=== PATIENT | female | born 1955 | race African-American/Black ===

== ENCOUNTER → 2020-10-10 10:29 | Outpatient (CLI) | payer MEDICARE, SELFPAY ==
--- NOTE | ~2020-10-10 | DEXA_ITS ---
Bone Density Report Name: Abdelrahman Salazar Age: 65 Sex: Female Ethnicity: Black Date of : 1955 Indication: postmenopausal; screening for osteoporosis; cancer; hysterectomy; Referring Provider: JET COOPER Study: Bone densitometry was performed. Exam Date: October 10, 2020 Accession number: [id number] Bone Density: Region BMD T-score Z-score Classification AP Spine (L1-L4) 1.034 -0.1 1.0 Normal Femoral Neck (Left) 0.837 -0.1 0.5 Normal Total Hip (Left) 1.069 1.0 1.3 Normal Femoral Neck (Right) 0.843 -0.1 0.6 Normal Total Hip (Right) 1.083 1.2 1.3 Normal Total Hip Mean 1.076 1.1 1.3 Normal World Health Organization criteria for BMD impression classify patients as: Normal (T-score at or above -1.0), Osteopenia (T-score between -1.0 and -2.5), or Osteoporosis (T-score at or below -2.5). 10-year Fracture Risk: FRAX not reported because: All T-scores for Spine Total, Hip Total, Femoral Neck at or above -1.0 Previous Exams: Region Exam Age BMD T-score BMD Change BMD Change Date g/cm2 vs Baseline vs Previous AP Spine(L1-L4) 10/10/2020 65 1.034 -0.1 0.157* 0.075* 05/29/2015 59 0.960 -0.8 0.082* 0.082* 06/19/2012 56 0.877 -1.5 Total Hip(Left) 10/10/2020 65 1.069 1.0 0.047* 0.017 05/29/2015 59 1.051 0.9 0.030* 0.030* 06/19/2012 56 1.022 0.7 Total Hip(Right) 10/10/2020 65 1.083 1.2 0.049* 0.008 05/29/2015 59 1.075 1.1 0.041* 0.041* 06/19/2012 56 1.034 0.8 *Denotes significance at 95% confidence level, LSC for AP Spine = 0.022 g/cm2, LSC for Total Hip = 0.027 g/cm2 Clinical Information Provided by Patient: Has the following medical conditions: Hysterectomy, Colon Cancer 1990 Patient maximum height was 64 Menopause Age: 34 No regular weight bearing exercise Does not regularly consume dairy products Drinks caffeinated beverages Onset of menses at age 14 Number of children 1 Impression: The patient has normal bone mass. No significant bone loss was observed. Discussion: BONE DENSITY IS ABOVE THE MINIMUM DESIRABLE LEVEL AT ALL SKELETAL SITES TESTED. This patient?s bone mineral density is above the minimum desirable level (T-score -1.0 or better) at all sites measured. The patient should follow a healthful lifestyle (good nutrition with adequate calcium and vitamin D, and appropriate
--- NOTE | ~2020-10-10 | MM_ITS ---
EXAMINATION: MM screening mimi BI w pete HISTORY: Screening TECHNIQUE: Craniocaudal and mediolateral oblique 3-D tomosynthesis images were obtained and synthetic 2-D images were generated. CAD analysis was submitted and interpreted. COMPARISON: Comparison to multiple prior studies sequentially, with oldest reviewed study dated 07/01. BREAST PARENCHYMAL COMPOSITION: The breasts are heterogeneously dense, which may obscure small masses . FINDINGS: There is no evidence of suspicious mass, calcification, or architectural distortion to sugg est malignancy in either breast. There has been no suspicious interval change. IMPRESSION: 1. No mammographic evidence of malignancy. 2. Recommend routine screening mammography in one year. BI-RADS Category 1: Negative Reviewed, dictated and finalized at location A. ECTION SYSTEMS CONSULTANT
== END ==
PROVIDERS: PCP Internal Medicine; Visit Provider Obstetrics & Gynecology
DX: Z12.31 Encounter for screening mammogram for malignant neoplasm of breast (principal); Z78.0 Asymptomatic menopausal state
CPT/HCPCS: 77063; 77067; 77080

== ENCOUNTER → 2021-01-21 00:32 | Outpatient (CLI) | payer MEDICARE, SELFPAY ==
[2021-01-21 18:03] LABS: SARS-CoV-2 RNA PCR Negative
== END ==
PROVIDERS: PCP Internal Medicine; Visit Provider Internal Medicine Gastroenterology
DX: Z01.812 Encounter for preprocedural laboratory examination (principal); Z20.822 Contact with and (suspected) exposure to COVID-19
CPT/HCPCS: C9803; U0003; U0005

== ENCOUNTER 2021-01-24 00:16 | Day surgery (SDC) | payer MEDICARE, SELFPAY ==
--- NOTE | 2021-01-11 14:22 | PC.NURSE ---
CONFIRMED NO HEALTH OR MEDICATION CHANGES SINCE INTERVIEW ON 12/25/2020, PT DENIES ANY CHANGES. UPDATED TIMES AND DATES WITH PT WITH PT VERBALIZING UNDERSTANDING.
[2021-01-11 14:25] VITALS: BMI 46.1
[2021-01-24 08:45] VITALS: BP 132/75; PULSE 93; RESP 16; TEMP 36; O2SAT 99
[2021-01-24] MEDS: LACTATED RINGERS 1,000 ML 150 ML IV CONT (08:58)
--- NOTE | 2021-01-24 09:30 | WPDGICN ---
GI Consult Note Consult date/time: 01/24/21 09:30 HPI: Reason for visit is colonoscopy. This very pleasant lady seen in consultation request of the primary physician. Impression: Screening and surveillance colonoscopy. The patient has a history colorectal cancer status post radiation therapy and surgery. CHF. COPD. HLD. HTN. MICAH. Obesity. Recommendation: Colonoscopy. History: This very pleasant lady is here for screening and surveillance colonoscopy. She has history of colorectal cancer. Her GI review systems negative. Physical examination: General: very pleasant patient in no acute distress. HEENT: Head was normocephalic sclerae is clear mouth without masses neck was supple. Heart: Rate rhythm regular without S3 or S4. Lungs: Decreased breath sounds bilaterally. Abdomen: Soft with no guarding or rigidity. Bowel sounds were active. Neurologic: Cranial nerves 2 through 12 intact. No focal defects. No clonus. Musculoskeletal system: Revealed no joint tenderness or swelling no muscle atrophy. Extremities: Reveal no significant edema. Skin: Warm and dry with normal turgor. Mental status: intact. Patient is alert and oriented. Review of Systems Review of Systems: All systems reviewed & are unremarkable except as noted in HPI and below PMFSH Past Medical History Medical History (Updated 01/24/21 @ 09:29 by Manuel Rodriguez DO) CHF (congestive heart failure) COPD mixed type Defibrination syndrome History of colon cancer Hypercholesterolemia Hypertension Obesity Osteoporosis Surgical History Surgical History (Updated 07/19/20 @ 08:02 by Taty Evans CMA) History of colon surgery Family History Family History (Updated 07/19/20 @ 08:02 by Taty Evans CMA) Sibling Diabetes mellitus Mother Diabetes mellitus Social History Social History Smoking packs per day: 1 Smoking cigarettes per day: 20.0 Years smoked: 40 Smoking pack-years: 40.00 Smoking status: Former smoker Tobacco type: cigarettes Smoking end date: 11/16/15 Alcohol intake: unknown Substance use: never Substance use type: does not use Living arrangements: alone Spiritual care concerns: No Meds Home Medications and Allergies Home Medications Medication Instructions Recorded Confirmed Type albuterol sulfate 90 mcg/actuation 2 puff INHALATION Q4-6H PRN gm 07/19/20 12/25/20 History aerosol inhaler aspirin 81 mg tablet,delayed 81 mg PO DAILY 07/19/20 01/24/21 History release carvedilol 6.25 mg tablet 6.25 mg PO Q12H 07/19/20 01/24/21 History furosemide 40 mg tablet 40 mg PO QAM 07/19/20 01/24/21 History sacubitril 24 mg-valsartan 26 mg 2 tablet PO BID tablet 07/19/20 01/24/21 History tablet simvastatin 20 mg tablet 20 mg PO DAILY 07/19/20 01/24/21 History spironolactone 25 mg tablet 25 mg PO DAILY 07/19/20 01/24/21 History tiotropium 2.5 mcg-olodaterol 2.5 2 puff INHALATION DAILY 07/19/20 01/24/21 History mcg/actuation mist for inhalation Allergies Allergy/AdvReac Type Severity Reaction Status Date / Time No Known Allergies Allergy Unknown Verified 01/24/21 08:42 Vital Signs Vital Signs - 24 hr 01/24/21 08:45 Temperature 36.0 C L Pulse Rate 93 Respiratory Rate 16 Blood Pressure 132/75 Pulse Oximetry 99
--- NOTE | 2021-01-24 09:32 | WPDANESEPPF ---
Anes - Initial Pre Proc Eval Procedure: Operation Date: 01/24/21 10:00 Proposed Procedures p Screening Colonoscopy - Manuel Rodriguez DO Date/Time: 01/24/21 09:32 Surgeon: Manuel Rodriguez DO Pre Op Diagnosis: neoplasm screening Patient Data Age: 65 Gender: F Height: 5 ft 4 in Weight: 121 kg Last Vital Signs Temp 96.8 F L 01/24/21 08:45 Pulse 93 01/24/21 08:45 Resp 16 01/24/21 08:45 BP 132/75 01/24/21 08:45 Pulse Ox 99 01/24/21 08:45 Allergies Allergy/AdvReac Type Severity Reaction Status Date / Time No Known Allergies Allergy Unknown Verified 01/24/21 08:42 Home Medications Medication Instructions Recorded Confirmed Type albuterol sulfate 90 mcg/actuation 2 puff INHALATION Q4-6H PRN gm 07/19/20 12/25/20 History aerosol inhaler aspirin 81 mg tablet,delayed 81 mg PO DAILY 07/19/20 01/24/21 History release carvedilol 6.25 mg tablet 6.25 mg PO Q12H 07/19/20 01/24/21 History furosemide 40 mg tablet 40 mg PO QAM 07/19/20 01/24/21 History sacubitril 24 mg-valsartan 26 mg 2 tablet PO BID tablet 07/19/20 01/24/21 History tablet simvastatin 20 mg tablet 20 mg PO DAILY 07/19/20 01/24/21 History spironolactone 25 mg tablet 25 mg PO DAILY 07/19/20 01/24/21 History tiotropium 2.5 mcg-olodaterol 2.5 2 puff INHALATION DAILY 07/19/20 01/24/21 History mcg/actuation mist for inhalation Patient hx anesthesia problems: none Family hx anesthesia problems: none PMFSH Past Medical History Medical History (Updated 01/24/21 @ 09:29 by Manuel Rodriguez DO) CHF (congestive heart failure) COPD mixed type Defibrination syndrome History of colon cancer Hypercholesterolemia Hypertension Obesity Osteoporosis Surgical History Surgical History (Updated 07/19/20 @ 08:02 by Taty Evans CMA) History of colon surgery Family History Family History (Updated 07/19/20 @ 08:02 by Taty Evans CMA) Sibling Diabetes mellitus Mother Diabetes mellitus Social History Social History Smoking packs per day: 1 Smoking cigarettes per day: 20.0 Years smoked: 40 Smoking pack-years: 40.00 Smoking status: Former smoker Tobacco type: cigarettes Smoking end date: 11/16/15 Alcohol intake: unknown Substance use: never Substance use type: does not use Living arrangements: alone Spiritual care concerns: No Anes - Eval Final PreProcedure Day of Procedure 01/24/21 09:32 Patient weight: morbidly obese Heart: regular rate and rhythm Lungs: clear to auscultation Airway: Mallampati scale class III Neurological: alert and oriented Last oral intake: >/= 8 hours ASA classification: IV Emergent: no Anesthetic plan: proceed Anesthesia type and monitoring: general GIVS and standard monitoring Informed Consent: The patient's anesthetic plan and its attendant risks and benefits were discussed with the patient/family/POA. Questions were solicited and answers provided to the satisfaction of the patient/family/POA.
[2021-01-24 10:22] VITALS: BP 148/60; PULSE 78; RESP 23; O2SAT 99
[2021-01-24 10:32] VITALS: BP 139/80; PULSE 69; RESP 24; O2SAT 100
[2021-01-24 10:42] VITALS: BP 125/97; PULSE 72; RESP 22; O2SAT 100
== END 2021-01-24 10:47 | disposition home or self-care (01) ==
PROVIDERS: PCP Internal Medicine; Referring Provider Obstetrics & Gynecology; Visit Provider Internal Medicine Gastroenterology
PROC: 0DJD8ZZ Inspection of Lower Intestinal Tract, Via Natural or Artificial Opening Endoscopic (ICD-10-PCS; CPT 45378; principal; 2021-01-24 10:00)
DX: Z12.11 Encounter for screening for malignant neoplasm of colon (principal); D12.3 Benign neoplasm of transverse colon; K64.8 Other hemorrhoids; Z85.038 Personal history of other malignant neoplasm of large intestine; Z92.3 Personal history of irradiation; Z90.49 Acquired absence of other specified parts of digestive tract; Z98.0 Intestinal bypass and anastomosis status; I11.0 Hypertensive heart disease with heart failure; I50.9 Heart failure, unspecified; E78.5 Hyperlipidemia, unspecified; J44.9 Chronic obstructive pulmonary disease, unspecified; G47.33 Obstructive sleep apnea (adult) (pediatric); D65 Disseminated intravascular coagulation [defibrination syndrome]; M81.0 Age-related osteoporosis without current pathological fracture; E66.01 Morbid (severe) obesity due to excess calories; Z68.42 Body mass index [BMI] 45.0-49.9, adult; Z87.891 Personal history of nicotine dependence; Z79.82 Long term (current) use of aspirin; Z79.51 Long term (current) use of inhaled steroids
CPT/HCPCS: 45380; 88305; C9803; J2704; J7120; U0003; U0005

== ENCOUNTER → 2021-11-21 14:15 | Outpatient (CLI) | payer MEDICARE, SELFPAY ==
--- NOTE | ~2021-11-21 | MM_ITS ---
EXAMINATION: MM screening mimi BI w pete HISTORY: Screening mammogram, family history of breast cancer in her sister. TECHNIQUE: Craniocaudal and mediolateral oblique 3-D tomosynthesis images were obtained and synthetic 2-D images were generated. CAD analysis was submitted and interpreted. COMPARISON: 10/10/2020, 08/23/2018, 08/17/2017 BREAST PARENCHYMAL COMPOSITION: There are scattered areas of fibroglandular density. FINDINGS: There is no evidence of suspicious mass, calcification, or architectural distortion to sugg est malignancy in either breast. There has been no suspicious interval change. IMPRESSION: 1. No mammographic evidence of malignancy. 2. Recommend routine screening mammography in one year. BI-RADS Category 1: Negative Reviewed, dictated and finalized at location A. RTISING MANAGER
== END ==
PROVIDERS: Visit Provider Obstetrics & Gynecology
DX: Z12.31 Encounter for screening mammogram for malignant neoplasm of breast (principal)
CPT/HCPCS: 77063; 77067

== ENCOUNTER 2022-07-15 14:46 | Outpatient (CLI) | payer OTHER, SELFPAY ==
[2022-07-15 18:54] LABS: Basophils Percent Auto 0.7 % (0.2-1.2); Eosinophils Absolute Auto 0.4 K/mm3 (0-0.3); Eosinophils Percent Auto 6.4 % (0-4.4); Hematocrit 40.3 % (37.0-47.0); Hemoglobin 12.9 g/dL (12.0-15.0); Immature Granulocyte Absolute 0.03 K/mm3 (0.00-0.031); Immature Granulocyte Percent A 0.5 % (0-0.5); Lymphocytes Absolute Auto 2.01 K/mm3 (0.9-3.2); Lymphocytes Percent Auto 34.1 % (18.3-44.2); Mean Corpuscular Hemoglobin 33.1 pg (26-34); Mean Corpuscular Volume 103.3 fl (80-100); Mean Platelet Volume 12.7 fl (7.4-10.4); Monocytes Absolute Auto 0.7 K/mm3 (0.1-0.6); Neutrophils Absolute Auto 2.8 K/mm3 (1.3-6.7); Neutrophils Percent Auto 47.3 % (45.5-73.1); Platelet Count Result 179 k/mm3 (150-375); Red Cell Distribution Width 13.2 % (11.5-14.5); White Blood Count 5.9 K/mm3 (4.5-10.0)
[2022-07-15 19:14] LABS: Alanine Aminotransferase 12 U/L (6-35); Albumin Level 4.2 g/dL (3.5-5.1); Alkaline Phosphatase 88 U/L (38-126); Anion Gap 3 mmol/L (8-16); Aspartate Amino Transferase 25 U/L (14-36); Bilirubin,Total 0.5 mg/dL (0.2-1.3); Blood Urea Nitrogen 12 mg/dL (7-17); Calcium 8.2 mg/dL (8.4-10.2); Carbon Dioxide 31 mmol/L (22-30); Chloride 99 mmol/L (98-107); Estimated Glomerular Filt Rate 60; Glucose 86 mg/dL (65-110); Potassium 4.1 mmol/L (3.4-5.0); Sodium 133 mmol/L (137-145)
== END 2022-07-15 14:47 | disposition home or self-care (01) ==
PROVIDERS: PCP Internal Medicine; Visit Provider Clinical Nurse Specialist
DX: I50.9 Heart failure, unspecified (principal)
CPT/HCPCS: 36415; 80053; 85025

== ENCOUNTER 2022-07-28 13:33 | Emergency (ER) | payer OTHER, SELFPAY ==
[2022-07-28 13:58] VITALS: BP 144/79; PULSE 93; RESP 14; TEMP 36.6; O2SAT 100
--- NOTE | 2022-07-28 15:38 | ED.FEMALEGU ---
HPI - Female Genitourinary General Chief complaint: Urogenital-Female Stated complaint: UTI History of Present Illness HPI Narrative: 66-year-old female presents the emergency room for multiple complaints. Patient has been complaining of dysuria for 2 days. Also complaining of a draining wound to the top of her gluteal cleft. Also complains of a pruritic rash in her perineal area. Related Data Home Medications Medication Instructions Recorded Confirmed albuterol sulfate 90 mcg/actuation 2 puff inhalation Q4-6H PRN 07/19/20 07/16/22 aerosol inhaler (ProAir HFA) Shortness Of Breath aspirin 81 mg tablet,delayed 81 mg PO DAILY 07/19/20 07/16/22 release (Adult Aspirin Regimen) carvedilol 6.25 mg tablet 6.25 mg PO Q12H 07/19/20 07/16/22 furosemide 40 mg tablet 40 mg PO QAM 07/19/20 07/16/22 sacubitril 24 mg-valsartan 26 mg 2 tablet PO BID 07/19/20 07/16/22 tablet (Entresto) simvastatin 20 mg tablet 20 mg PO DAILY 07/19/20 07/16/22 spironolactone 25 mg tablet 25 mg PO DAILY 07/19/20 07/16/22 tiotropium 2.5 mcg-olodaterol 2.5 2 puff inhalation DAILY 07/19/20 07/16/22 mcg/actuation mist for inhalation (Stiolto Respimat) nintedanib 150 mg capsule (Ofev) 150 mg PO Q12H 07/15/22 07/16/22 Allergies Allergy/AdvReac Type Severity Reaction Status Date / Time No Known Allergies Allergy Unknown Verified 07/28/22 14:45 Review of Systems Review of Systems: CONSTITUTIONAL: Denies fever, chills, or sweats. EYES: Denies visual changes, redness, or discharge. ENT: Denies rhinorrhea, congestion, sore throat, or otalgia. CARDIOVASCULAR: Denies chest pain, palpitations, or edema. RESPIRATORY: Denies cough or dyspnea. GASTROINTESTINAL: Denies abdominal pain, nausea, vomiting, or diarrhea. GENITOURINARY: Reports dysuria SKIN: Reports rash perineal area MUSCULOSKELETAL: Denies back pain, joint pain, or myalgia. NEUROLOGIC: Denies headache, numbness, dizziness, or weakness. PSYCHIATRIC: Denies anxiety or depression. [facility] Past Medical History Medical History CHF (congestive heart failure) COPD mixed type Defibrination syndrome History of colon cancer Hypercholesterolemia Hypertension Obesity Osteoporosis Surgical History Surgical History History of colon surgery Family History Family History Sibling Diabetes mellitus Mother Diabetes mellitus Social History Social History Smoking packs per day: 1 Smoking cigarettes per day: 20.0 Years smoked: 40 Smoking pack-years: 40.00 Smoking status: Former smoker Tobacco type: cigarettes Smoking end date: 11/16/15 Alcohol intake: unknown Substance use: never Substance use type: does not use Spiritual care concerns: No Exam Narrative: GENERAL: Well-appearing, well-nourished, no physical limitations, and in no acute distress. HEAD: Normocephalic, atraumatic. EYES: Conjunctivae normal, PERRLA and EOMI. CHEST: Clear to auscultation. No respiratory distress. No wheezes rales or rhonchi. No tenderness. HEART: Regular rate and rhythm. No murmur heard. Normal peripheral pulses. ABDOMEN: Soft, nontender, nondistended, normal active bowel sounds. : Normal external female exam. EXTREMITIES: Normal range of motion. No edema. No clubbing or cyanosis SKIN: Erythematous plaque with raised borders to the gluteal fold, draining abscess to the upper left gluteal cleft NEURO: No focal deficits. Alert and oriented x3. MAEW. CN's II-XI intact bilaterally, normal gait PSYCH: Cooperative. Normal mood and affect. Course Vital Signs Vital signs: Vital Signs Temperature 36.6 C 07/28/22 13:58 Pulse Rate 93 07/28/22 13:58 Respiratory Rate 14 07/28/22 13:58 Blood Pressure 144/79 H 07/28/22 13:58 Pulse Oximetry 100 07/28/22 13:58 Ox
[2022-07-28 16:11] LABS: Alanine Aminotransferase 13 U/L (6-35); Albumin Level 4.2 g/dL (3.5-5.1); Alkaline Phosphatase 76 U/L (38-126); Anion Gap 10 mmol/L (8-16); Aspartate Amino Transferase 21 U/L (14-36); Bilirubin,Total 0.8 mg/dL (0.2-1.3); Blood Urea Nitrogen 14 mg/dL (7-17); Calcium 8.8 mg/dL (8.4-10.2); Carbon Dioxide 31 mmol/L (22-30); Chloride 100 mmol/L (98-107); Estimated CRCL calculation 67 ml/min; Estimated Glomerular Filt Rate > 60; Glucose 100 mg/dL (65-110); Sodium 141 mmol/L (137-145)
[2022-07-28 16:13] LABS: Appearance Urine Clear (Clear); Bilirubin Urine Negative (Negative); Color Urine Yellow (Yellow); Glucose Urine UA Negative (Negative); Ketones Urine Negative (Negative); Leukocyte Esterase Ur 1+ LEU/UL (Negative); Nitrate Urine Negative (Negative); Protein Urine Negative (Negative); Urobilinogen Urine 0.2 mg/dL (<2.0)
[2022-07-28 16:20] LABS: Add Urine Microscopic? YES; Bacteria Urine 1+ /hpf; Blood Urine Trace-Intact (Negative); RBC Urine 0-2 /hpf (0-2); Squamous Epithelial Cell Urine Rare /hpf (Few); WBC Urine >75 /hpf
[2022-07-28 16:46] VITALS: BP 142/80; PULSE 88; RESP 16; TEMP 36.8; O2SAT 97
== END 2022-07-28 16:49 | disposition home or self-care (01) ==
PROVIDERS: Emergency Medicine; Emergency Provider Nurse Practitioner Family; PCP Internal Medicine
DX: N39.0 Urinary tract infection, site not specified (principal); B35.4 Tinea corporis; L02.31 Cutaneous abscess of buttock; Z87.891 Personal history of nicotine dependence; I11.0 Hypertensive heart disease with heart failure; I50.9 Heart failure, unspecified; J44.9 Chronic obstructive pulmonary disease, unspecified; E78.5 Hyperlipidemia, unspecified
CPT/HCPCS: 36415; 51701; 80053; 81001; 87077; 87086; 87088; 99283

== ENCOUNTER 2022-09-04 07:18 | Outpatient (RCR) | payer OTHER, SELFPAY ==
[2022-08-07 09:30] VITALS: BMI 44.5
== END 2022-10-27 08:38 | disposition home or self-care (01) ==
LOC: ANHWOC 07:18
PROVIDERS: PCP Internal Medicine; Visit Provider Clinical Nurse Specialist
DX: L02.91 Cutaneous abscess, unspecified (principal)
CPT/HCPCS: 99211; 99212; G0463

== ENCOUNTER 2024-04-27 11:45 | Outpatient (CLI) | payer OTHER, SELFPAY ==
[2024-04-27 19:11] LABS: Basophils Percent Auto 0.4 % (0.2-1.2); Eosinophils Absolute Auto 0.1 K/mm3 (0-0.3); Eosinophils Percent Auto 0.8 % (0-4.4); Hematocrit 33.8 % (37.0-47.0); Hemoglobin 11.2 g/dL (12.0-15.0); Immature Granulocyte Absolute 0.09 K/mm3 (0.00-0.031); Immature Granulocyte Percent A 1.1 % (0-0.5); Lymphocytes Absolute Auto 1.43 K/mm3 (0.9-3.2); Lymphocytes Percent Auto 16.9 % (18.3-44.2); Mean Corpuscular HGB Conc 33.1 g/dl (32-36); Mean Corpuscular Hemoglobin 34.7 pg (26-34); Mean Corpuscular Volume 104.6 fl (80-100); Mean Platelet Volume 11.1 fl (7.4-10.4); Monocytes Absolute Auto 0.9 K/mm3 (0.1-0.6); Monocytes Percent Auto 10.3 % (2.6-8.5); Neutrophils Percent Auto 70.5 % (45.5-73.1); Platelet Count Result 265 k/mm3 (150-375); Red Blood Count 3.23 M/mm3 (4.2-5.4); Red Cell Distribution Width 13.3 % (11.5-14.5); White Blood Count 8.4 K/mm3 (4.5-10.0)
[2024-04-27 19:23] LABS: Appearance Urine Turbid (Clear); Bacteria Urine 4+ /hpf; Bilirubin Urine Negative (Negative); Blood Urine 3+ (Negative); Color Urine Yellow (Yellow); Glucose Urine UA Negative (Negative); Ketones Urine Negative (Negative); Leukocyte Esterase Ur 3+ LEU/UL (Negative); Need Manual Microscopic Reviewed; Nitrate Urine Positive (Negative); Non Pathogenic Casts >20; Protein Urine 2+ mg/dL (Negative); RBC Urine 0-2 /hpf (0-2); Specific Grav Ur 1.012 (1.001-1.035); Squamous Epithelial Cell Urine Few /hpf (Few); WBC Urine >100 /hpf (0-3)
[2024-04-27 19:31] LABS: Add Urine Microscopic? YES
[2024-04-27 19:41] LABS: Vitamin D 25 Hydroxy 15.2 ng/mL
[2024-04-27 19:43] LABS: Creatinine Urine 131.9 mg/dL
[2024-04-27 19:45] LABS: Alanine Aminotransferase 16 U/L (6-35); Albumin Level 4.1 g/dL (3.5-5.1); Alkaline Phosphatase 84 U/L (38-126); Anion Gap 8 mmol/L (4-12); Aspartate Amino Transferase 41 U/L (14-36); Bilirubin,Total 0.7 mg/dL (0.2-1.3); Blood Urea Nitrogen 23 mg/dL (7-17); Calcium 8.9 mg/dL (8.4-10.2); Carbon Dioxide 30 mmol/L (22-30); Chloride 98 mmol/L (98-107); Estimated Glomerular Filt Rate 49; Glucose 159 mg/dL (65-110); Potassium 3.2 mmol/L (3.4-5.0); Sodium 136 mmol/L (137-145)
[2024-04-27 20:08] LABS: Thyroid Stimulating Hormone 0.686 uIU/mL (0.465-4.680)
[2024-04-27 20:16] LABS: MALB Creatinine Ratio 174.9 mg/g (0-30); Microalbumin Urine Random 230.7 mg/L (0-16.7)
[2024-04-27 20:36] LABS: Hemoglobin A1C 5.8 % (<5.7)
== END 2024-04-27 11:46 | disposition home or self-care (01) ==
PROVIDERS: PCP Internal Medicine; Visit Provider Clinical Nurse Specialist
DX: Z09 Encounter for follow-up examination after completed treatment for conditions other than malignant neoplasm (principal); E78.00 Pure hypercholesterolemia, unspecified; I10 Essential (primary) hypertension; I50.9 Heart failure, unspecified; J44.9 Chronic obstructive pulmonary disease, unspecified; M25.559 Pain in unspecified hip; R35.0 Frequency of micturition; R68.2 Dry mouth, unspecified; R73.9 Hyperglycemia, unspecified; E55.9 Vitamin D deficiency, unspecified
CPT/HCPCS: 36415; 80053; 81001; 82043; 82306; 83036; 84443; 85025; 87077; 87086; 87088; 87186

== ENCOUNTER 2024-04-27 12:00 | Outpatient (CLI) | payer OTHER, SELFPAY ==
--- NOTE | ~2024-04-27 | XR_ITS ---
XR hip RT min 2V 04/27/2024 12:15 Indication: Right hip pain Procedure: 2 views right hand Comparison: No prior studies for comparison. Findings: Mild osteoarthritis of the right hip. There are degenerative changes symmetrically in the s acroiliac joints. There is diastases of the pubic symphysis. Sacral foramen are symmetric. Impression: 1: Mild osteoarthritis of the right hip. Reviewed, dictated and finalized at location B. Impression: 1: Mild osteoarthritis of the right hip.
== END 2024-04-27 12:01 ==
PROVIDERS: PCP Internal Medicine; Visit Provider Clinical Nurse Specialist
DX: M16.11 Unilateral primary osteoarthritis, right hip (principal)
CPT/HCPCS: 73502

== ENCOUNTER 2024-05-05 10:09 | Outpatient (CLI) | payer OTHER, SELFPAY ==
[2024-05-05 14:51] LABS: Basophils Percent Auto 0.5 % (0.2-1.2); Eosinophils Absolute Auto 0.1 K/mm3 (0-0.3); Eosinophils Percent Auto 1.8 % (0-4.4); Hematocrit 35.7 % (37.0-47.0); Hemoglobin 11.5 g/dL (12.0-15.0); Immature Granulocyte Absolute 0.08 K/mm3 (0.00-0.031); Immature Reticulocyte Fraction 18.7 % (3.0-15.9); Lymphocytes Absolute Auto 1.35 K/mm3 (0.9-3.2); Lymphocytes Percent Auto 17.1 % (18.3-44.2); Mean Corpuscular HGB Conc 32.2 g/dl (32-36); Mean Corpuscular Hemoglobin 34.2 pg (26-34); Mean Corpuscular Volume 106.3 fl (80-100); Monocytes Absolute Auto 0.8 K/mm3 (0.1-0.6); Neutrophils Absolute Auto 5.5 K/mm3 (1.3-6.7); Neutrophils Percent Auto 69.6 % (45.5-73.1); Platelet Count Result 259 k/mm3 (150-375); Red Blood Count 3.36 M/mm3 (4.2-5.4); Red Cell Distribution Width 13.4 % (11.5-14.5); Reticulocyte Hemoglobin Conten 37.2 pg (28.2-36.6); Reticulocyte Percent 2.12 % (0.7-4.3); Reticulocytes Absolute 0.07 10^6/uL (0.02-0.10); White Blood Count 7.9 K/mm3 (4.5-10.0)
[2024-05-05 15:23] LABS: Creatinine Urine 160.2 mg/dL
[2024-05-05 15:24] LABS: MALB Creatinine Ratio 54.7 mg/g (0-30); Microalbumin Urine Random 87.6 mg/L (0-16.7)
[2024-05-05 15:40] LABS: Iron 88 ug/dL (37-170)
[2024-05-05 15:53] LABS: Alanine Aminotransferase 14 U/L (6-35); Albumin Level 4.4 g/dL (3.5-5.1); Alkaline Phosphatase 91 U/L (38-126); Anion Gap 8 mmol/L (4-12); Aspartate Amino Transferase 23 U/L (14-36); Bilirubin,Total 0.8 mg/dL (0.2-1.3); Blood Urea Nitrogen 23 mg/dL (7-17); Calcium 8.9 mg/dL (8.4-10.2); Carbon Dioxide 32 mmol/L (22-30); Chloride 98 mmol/L (98-107); Estimated Glomerular Filt Rate 45; Glucose 120 mg/dL (65-110); Potassium 4.2 mmol/L (3.4-5.0); Sodium 138 mmol/L (137-145)
[2024-05-05 16:01] LABS: Percent Iron Saturation 38 % (20-50)
[2024-05-05 17:28] LABS: Macrocytosis 1+ (NORMAL); Platelet Estimate Adequate (Adequate)
[2024-05-05 17:29] LABS: Schistocytes None Seen
[2024-05-06 08:24] LABS: Protein, Total 7.2 g/dL (6.1-8.1)
[2024-05-06 14:43] LABS: ANA Cascade Screen POSITIVE (NEGATIVE); Chromatin (Nucleosomal) Ab <1.0 NEG AI (<1.0 NEG); Chromatin Antibody Charge YES; DNA (ds) Antibody Charge YES; RNP Antibody <1.0 NEG AI (<1.0 NEG); RNP Antibody Charge YES; Sm Antibody <1.0 NEG AI (<1.0 NEG); Sm Antibody Charge YES; Sm/RNP Antibody <1.0 NEG AI (<1.0 NEG); Sm/RNP Antibody Charge YES
[2024-05-06 16:38] LABS: Creatinine, Random Urine 156 mg/dL (20-275); Total Protein/Creatinine Ratio 353 mg/g creat (24-184)
[2024-05-09 12:34] LABS: Albumin 3.4 g/dL (3.8-4.8); Alpha 1 Globulin 0.4 g/dL (0.2-0.3); Alpha 2 Globulin 1.2 g/dL (0.5-0.9); Beta 1 Globulin 0.4 g/dL (0.4-0.6); Gamma Globulin 1.3 g/dL (0.8-1.7)
== END 2024-05-05 10:10 | disposition home or self-care (01) ==
PROVIDERS: PCP Internal Medicine; Visit Provider Clinical Nurse Specialist
DX: R79.89 Other specified abnormal findings of blood chemistry (principal); R74.8 Abnormal levels of other serum enzymes; J44.9 Chronic obstructive pulmonary disease, unspecified; D64.9 Anemia, unspecified
CPT/HCPCS: 36415; 80053; 82043; 82570; 82607; 82728; 83540; 83550; 84155; 84156; 84165; 84166; 85025; 85046; 86038; 86225; 86235; 86364

== ENCOUNTER 2024-05-24 13:52 | Outpatient (CLI) | payer OTHER, SELFPAY ==
[2024-05-24 19:37] LABS: Anion Gap 8 mmol/L (4-12); Blood Urea Nitrogen 16 mg/dL (7-17); Calcium 8.6 mg/dL (8.4-10.2); Carbon Dioxide 31 mmol/L (22-30); Chloride 102 mmol/L (98-107); Estimated Glomerular Filt Rate > 60; Glucose 123 mg/dL (65-110); Potassium 3.5 mmol/L (3.4-5.0); Sodium 141 mmol/L (137-145)
[2024-05-24 20:01] LABS: Creatinine Urine 85.4 mg/dL; Total Protein Urine Random 17 mg/dL
[2024-05-24 20:05] LABS: MALB Creatinine Ratio 47.1 mg/g (0-30); Microalbumin Urine Random 40.2 mg/L (0-16.7)
== END 2024-05-24 13:53 | disposition home or self-care (01) ==
LOC: ANHGOSHLAB 13:56
PROVIDERS: PCP Clinical Nurse Specialist; Visit Provider Clinical Nurse Specialist
DX: D64.9 Anemia, unspecified (principal); R79.89 Other specified abnormal findings of blood chemistry; M25.551 Pain in right hip; R80.9 Proteinuria, unspecified
CPT/HCPCS: 36415; 80048; 81050; 82043; 82728; 84156

== ENCOUNTER 2024-09-28 14:43 | Outpatient (NON) | payer OTHER, SELFPAY ==
[2024-09-28 20:24] LABS: Add Urine Microscopic? YES; Appearance Urine Cloudy (Clear); Bacteria Urine 4+ /hpf; Bilirubin Urine Negative (Negative); Blood Urine 3+ (Negative); Color Urine Yellow (Yellow); Glucose Urine UA Negative (Negative); Ketones Urine Negative (Negative); Leukocyte Esterase Ur 3+ LEU/UL (Negative); Nitrate Urine Negative (Negative); Non Pathogenic Casts 0-2; Protein Urine 1+ mg/dL (Negative); RBC Urine 0-2 /hpf (0-2); Specific Grav Ur 1.006 (1.001-1.035); Squamous Epithelial Cell Urine None Seen /hpf (Few); Urobilinogen Urine 0.2 mg/dL (<2.0); WBC Urine >100 /hpf (0-3); pH Urine 6.5 (5.0-9.0)
== END 2024-09-28 14:44 | disposition home or self-care (01) ==
LOC: ANHGOSHLAB 14:44
PROVIDERS: PCP Internal Medicine; Visit Provider Nurse Practitioner
DX: N39.0 Urinary tract infection, site not specified (principal); R31.9 Hematuria, unspecified; R39.9 Unspecified symptoms and signs involving the genitourinary system; R35.0 Frequency of micturition
CPT/HCPCS: 81001; 87086

== ENCOUNTER 2025-01-02 12:50 | Outpatient (CLI) | payer OTHER, SELFPAY ==
--- NOTE | ~2025-01-02 | MM_ITS ---
EXAMINATION: MM screening mimi BI w pete HISTORY: Screening TECHNIQUE: Craniocaudal and mediolateral oblique 3-D tomosynthesis images were obtained and synthetic 2-D images were generated. CAD analysis was submitted and interpreted. COMPARISON: Comparison to multiple prior studies sequentially, with oldest reviewed study dated 08/11. BREAST PARENCHYMAL COMPOSITION: Not dense: There are scattered areas of fibroglandular density. FINDINGS: There is no evidence of suspicious mass, calcification, or architectural distortion to sugg est malignancy in either breast. There has been no suspicious interval change. IMPRESSION: 1. No mammographic evidence of malignancy. 2. Recommend routine screening mammography in one year. BI-RADS Category 1: Negative Reviewed, dictated and finalized at location B. R APPRENTICE
--- OUTSIDE RECORDS SUMMARY | 2025-01-02 15:15 | XMS_ITS | Referral Summary ---
Author Organization [facility] Address [address] [place] [address] Care Team Providers Care Singing Teacher Name Role Phone Carmine Yost DO Primary Care Provider [phone] Cristin Medina MD Unavailable [phone] Encounters Date Type Department Care Team Description 11/09/2024 Orders Only [facility] Cardiology [address] [place] [address] Marcus Bey MD PhD from Last 3 Months Allergies No known active allergies Medications aspirin 81 mg tabletIndications: heart Take 1 tablet (81 mg total) by mouth early head start director before breakfast Active cyclobenzaprine (FLEXERIL) 10 mg tablet Take 1 tablet (10 mg total) by mouth 3 (three) times a day as needed for muscle spasms 0 07/21/20 19 Active albuterol HFA (PROAIR HFA) 90 mcg/actuation inhaler Inhale 2 puffs every 4 (four) hours as needed for wheezing or shortness of breath 8.5 g 5 09/02/20 19 03/ 030 Active Stiolto Respimat 2.5-2.5 mcg/actuation inhalerIndications :Bronchospasm Prevention with COPD Inhale 1 puff early head start director before breakfast 07/05/20 20 Active Ofev 150 mg capsuleIndications :progressive fibrosing interstitial lung disease Take 1 capsule (150 mg total) by mouth early head start director before breakfast 06/09/20 22 Active dapagliflozin propanediol (Farxiga) 10 mg tablet TAKE 1 TABLET BY MOUTH EVERY DAY 90 tablet 3 02/10/20 24 Active Additional Information Patient taking differently: 10 mg oral Daily (early AM), Indications: Heart Failure, Informant: Self, Reported on 02/15/2024 bismuth subsalicylate (PEPTO-BISMOL) suspension Take 30 mL by mouth every 6 (six) hours as needed for indigestion, heartburn or diarrhea Active cranberry-vitamin C-mannose 250-30-50 mg tablet,chewableInd ications:Recurrent UTI Take 1,000 mg by mouth 2 (two) times a day 60 tablet 3 05/30/20 24 Active estradioL (ESTRACE) 0.01 % (0.1 mg/gram) vaginal creamIndications:M ixed stress and urge urinary incontinence,Recur rent UTI,Urgency of urination,Urinary frequency,Dysuria, Genitourinary syndrome of menopause Apply one (1) gram in the vagina two to three (2-3) nights per week. 42.5 g 2 05/30/20 24 Active furosemide (LASIX) 40 mg tablet TAKE 1 TABLET BY MOUTH EVERY DAY 90 tablet 2 07/19/20 24 Active sacubitriL-valsart an (ENTRESTO) 24-26 mg tabletIndications: chronic heart failure Use as directed 14 tablet 07/26/20 24 Active dapagliflozin propanediol (FARXIGA) 10 mg tablet Use as directed 7 tablet 07/26/20 24 Active tamsulosin (FLOMAX) 0.4 mg extended release capsuleIndications :Incomplete bladder emptying,Bilateral hydronephrosis Take 1 capsule (0.4 mg total) by mouth daily 30 capsule 5 08/01/20 24 Active carvediloL (COREG) 6.25 mg tablet TAKE 1 TABLET BY MOUTH TWICE A DAY WITH FOOD 180 tablet 1 11/25/19 25 Active sacubitriL-valsart an (Entresto) 24-26 mg tablet TAKE 1 TABLET BY MOUTH TWICE A DAY 60 tablet 5 11/28/19 25 Active spironolactone (ALDACTONE) 25 mg tablet TAKE 1 TABLET BY MOUTH EVERY DAY 30 tablet 5 11/28/19 25 Active simvastatin (ZOCOR) 20 mg tablet TAKE 1 TABLET BY MOUTH EVERY DAY AT NIGHT 30 tablet 5 11/28/19 25 Active Active Problems Problem Noted Date Diagnosed Date NICM (nonischemic cardiomyopathy) ([facility]) 02/16 VF (ventricular fibrillation) ([facility]) 02/05/20 21 Encounter for adjustment of biventricular implantable cardioverter-defibrillator (ICD) 01/30/2020 Assessment & Plan (02/05/2023 9:36 AM CDT): Cardiac arrest s/p secondary prevention [facility] [place] HAND LENS POLISHER-D (09/15/2017) HAND LENS POLISHER-D is functioning appropriately as programmed Lead impedances, sensing, and thresholds are stable No ICD shocks Minor programming changes made today Continue remote monitoring quarterly Follow up in 1 year for device check Chronic combined systolic an d diastolic congestive heart failure ([facility]) 01/30/2020 Dyslipidemia 06/28/2018 Assessment & Plan (06/28/2018 2:13 PM CDT): She is on simvastatin 20 mg a day. Tolerates well. Presence of cardiac defibrillator 09/16/2017 Assessment & Plan (06/28/2018 2:13 PM CDT): She has no ICD discharge. She follows with Dr. Osmani Bey/[facility]. She has already quit smoking. Chronic obstructive pulmonary disease 08/24/2017 Morbid obesity 08/24/2017 Current smoker 08/14/2017 Chest pain 08/10/2017 Cardiomyopathy, nonischemic ([facility]) 06/28/2017 Assessment & Plan (02/05/2023 9:09 AM CDT): NICM, chronic HFrEF with recovered LVEF 50%, NYHA class III Continue GDMT per Dr. Lopez Interstitial lung disease ([facility]) Social History Tobacco Use Types Packs/Day Years Used Date Smoking Tobacco: Former Passive Smoke Exposure: Never Smokeless Tobacco: Never Tobacco Cessation:Counseling Given: Not Answered AUDIT-C Answer Date Recorded Q1: How often do you have a drink containing alcohol? Never 03/15/2024 Q2: How many drinks containi ng alcohol do you have on a typical day when you are drinking? Patient does not drink Q3: How often do you have si x or more drinks on one occasion? Never 03/15/2024 Personal Safety Answer Date Recorded Have you ever been in or are you currently in a harmful physical or emotional relationship or is someone making you feel afraid or unsafe? Denies 03/15/2024 Comments No Sex and Gender Information Value Date Recorded Sex Assigned at Not on file Legal Sex Female 6:44 PM RESIDENT ATHLETIC TRAINER Gender Identity Not on file Sexual Orientation Not on file Last Filed Vital Signs Vital Sign Reading Time Taken Comments Blood Pressure 126/84 07/26/2024 8:45 AM CDT Pulse 79 07/26/2024 8:45 AM CDT Temperature 36.4 C (97.6 F) 07/26/2024 8:45 AM CDT Respiratory Rate 21 03/15/2024 11:1 0 AM CDT Oxygen Saturation 100% 07/26/2024 8:45 AM CDT Inhaled Oxygen Concentration - - Weight 101.8 kg (224 lb 6.4 oz) 07/26/2024 8:45 AM CDT Height 162.6 cm (5' 4 ) 07/26/2024 8:45 AM CDT Body Mass Index 38.52 07/26/2024 8:45 AM CDT Plan of Treatment Not on file Medical Devices Implanted Type Area Hot [place]ale Man Device Identifier Shelf Expiration Date Model / Serial / Lot [employer] C[employer]M. Vigilant 5.37x8.18cm Mr Conditional Is 1 Df4 Is4 Connector .99cm [id number] - [id number] - [id number] Implanted:Qty: 1 on 03/15/2024 by Marcus Bey MD PhD at [facility] ICD Left: Chest Wall [employer] C.R.M. 10/19/2025 [id number] / [id number] / Procedures Procedure Name Priority Date/Time Associated Diagnosis Comments DEVICE CHECK - REMOTE Routine 11/09/2024 6:50 AM RESIDENT ATHLETIC TRAINER from Last 3 Months Results * DEVICE CHECK - REMOTE (11/09/2024 6:50 AM RESIDENT ATHLETIC TRAINER) Anatomical Region Laterality Modality Other 11/09/2024 6:50 AM RESIDENT ATHLETIC TRAINER Narrative 12/29/2024 1:22 PM RESIDENT ATHLETIC TRAINER Interpretation Summary: Battery and Leads (BL) Normal parameters noted on battery and lead(s) --- 7 years remaining (this is an estimate based on prior usage) Presenting Rhythm (SC) Atrial Sensing-Ventricular Pacing (-NURSE PRACTITIONER PHYSICIAN ASSISTANT) --- rate 82 Arrhythmic events (AE) No new arrhythmic events in monitoring period Transmission Information (TI) Device Summary Report Procedure Note Marcus Bey MD PhD - 12/29/2024 Interpretation Summary: Battery and Leads (BL) Normal parameters noted on battery and lead(s) --- 7 years remaining(this is an estimate based on prior usage) Presenting Rhythm (SC) Atrial Sensing-Ventricular Pacing (-NURSE PRACTITIONER PHYSICIAN ASSISTANT) --- rate 82 Arrhythmic events (AE) No new arrhythmic events in monitoring period Transmission Information (TI) Device Summary Report Marcus Bey MD PhD [facility] SC OCEDURES Final Result from Last 3 Months Insurance [facility] MEDICARE [facility] Address: [facility] [address] [place] [address] [facility]IC[facility] [employer] [facility] Care Teams Singing Teacher Relationship Specialty Start Date End Date Carmine Yost DO PCP - General 05/25/17 [place] [id number] [address] Consulting Physician Pulmonary Disease 08/28/23
--- OUTSIDE RECORDS SUMMARY | 2025-01-02 15:15 | XMS_ITS | Encounter Summary ---
Author Organization [facility] Address [address] [place] [address] Phone Care Team Providers Care Media Operator Name Role Phone Carmine Yost DO Primary Care Provider [phone] Cristin Medina MD Unavailable [phone] Encounter Details Date Type Department Care Team (Late st Contact Info) Description 01/04/2018 Orders Only [facility] ProviderKrishna MD [address] [place] [id number] Social History Tobacco Use Types Packs/Day Years Used Date Smoking Tobacco: Former Comments Unknown Sex and Gender Information Value Date Recorded Sex Assigned at Not on file Legal Sex Female 6:44 PM BEE TENDER Gender Identity Not on file Sexual Orientation Not on file documented as of this encounter Plan of Treatment Not on file documented as of this encounter Procedures Procedure Name Priority Date/Time Associated Diagnosis Comments CARDIOLOGY REPORT 01/04/2018 documented in this encounter Results * CARDIOLOGY REPORT (01/04/2018) Anatomical Region Laterality Modality Other Narrative 01/04/2018 Ordered by an unspecified provider. Historical Provider [facility] ANTHONY HUGHES Final Result documented in this encounter Visit Diagnoses Not on filedocumented in this encounter Care Teams Media Operator Relationship Specialty Start Date End Date Carmine Yost DO PCP - General 05/25/17 [place] [address] [address] Consulting Physician Pulmonary Disease 08/28/23 documented as of this encounter
--- OUTSIDE RECORDS SUMMARY | 2025-01-02 15:15 | XMS_ITS | Clinical Summary ---
Author Organization [facility] Address [address] [place] [id number] Care Team Providers Care Librarian School Name Role Phone RashadManuel greene Burke BARON Unavailable [phone] Reyes Keys MD Unavailable [phone] Carmine Yost DO Primary Care Provider Immunizations Immunization Administration Dates Next Due Covid-19, Mrna, Lnp-s, Pf, 30 Mcg/0.3 Ml Dose (P fizer) 07/04/2021,06/13/2021 Social History Tobacco Use Types Packs/Day Years Used Date Smoking Tobacco: Never Assessed Comments Unknown Sex and Gender Information Value Date Recorded Sex Assigned at Not on file Legal Sex Female 12:30 AM CDT Gender Identity Not on file Sexual Orientation Not on file Plan of Treatment Health Maintenance Due Date Last Done Comments DEXA Bone Density 1955 Hepatitis C Virus (HCV) Screening 1955 TdaP Immunization 1955 Cologuard 2004 Immunochemical Fecal Occult Blood 2004 Mammogram 2004 Pneumococcal Immunization (5 0+ years) (1 of 1 - PCV) 2004 Zoster Immunization (1 of 2) 2004 Influenza Immunization (#1) 2024 SARS-COV-2 Immunization ( - 2023- season) 2024 04/24/2022, 07/04/2021, 06/13/2021 Respiratory Syncytial Virus (RSV) Immunization (Adult) (1 - 1-dose 75+ series) 2029 Colonoscopy 01/24/2031 01/24/2021, 10/15/2015 Colorectal Cancer Screening 01/24/2031 01/24/2021, 10/15/2015 Hepatitis B Immunization Aged Out No longer eligible based on patient's age to complete this topic Meningococcal Immunization (ACWY) Aged Out No longer eligible b ased on patient's age to complete this topic Rotavirus Immunization Aged Out No lo nger eligible based on patient's age to complete this topic Procedures Procedure Name Priority Date/Time Associated Diagnosis Comments COLONOSCOPY Routine 01/24/2021 from Last 3 Months or Most Recently Relevant to Health Maintenance Results * COLONOSCOPY (01/24/2021) Manuel Rodriguez DO PROCEDURE/MINOR SURGICAL ORDERA BLES Final Result from Last 3 Months or Most Recently Relevant to Health Maintenance Insurance MEDICARE C [employer] Care Teams Librarian School Relationship Specialty Start Date End Date Carmine Yost DO [facility] [facility] [place] [address] PCP - General Internal Medicine 12/13/20 Manuel Rodriguez DO Gastroenterology 10/15/15 Reyes Keys MD [address] [place] [address] Obstetrics & Gynecology 12/13/20
--- OUTSIDE RECORDS SUMMARY | 2025-01-02 15:16 | XMS_ITS | Clinical Summary ---
Author Organization [facility] Address [address] [place] [address] Care Team Providers Care Rattlesnake Farmer Name Role Phone Carmine Yost DO Primary Care Provider [phone] Cristin Medina MD Unavailable [phone] Allergies No known active allergies Medications aspirin 81 mg tabletIndications: heart Take 1 tablet (81 mg total) by mouth pull tab dealer before breakfast Active cyclobenzaprine (FLEXERIL) 10 mg tablet Take 1 tablet (10 mg total) by mouth 3 (three) times a day as needed for muscle spasms 0 07/21/20 19 Active albuterol HFA (PROAIR HFA) 90 mcg/actuation inhaler Inhale 2 puffs every 4 (four) hours as needed for wheezing or shortness of breath 8.5 g 5 09/02/20 19 030 Active Stiolto Respimat 2.5-2.5 mcg/actuation inhalerIndications :Bronchospasm Prevention with COPD Inhale 1 puff pull tab dealer before breakfast 07/05/20 20 Active Ofev 150 mg capsuleIndications :progressive fibrosing interstitial lung disease Take 1 capsule (150 mg total) by mouth pull tab dealer before breakfast 06/09/20 22 Active dapagliflozin propanediol [...] Noted Date Diagnosed Date NICM (nonischemic cardiomyopathy) ([facility]) 02/16 VF (ventricular fibrillation) ([facility]) 02/05/20 21 Encounter for adjustment of biventricular implantable cardioverter-defibrillator (ICD) 01/30/2020 Assessment & Plan (02/05/2023 9:36 AM CDT): Cardiac arrest s/p secondary prevention [facility] COVERAGE SPECIALIST RN-D (09/15/2017) COVERAGE SPECIALIST RN-D is functioning appropriately as programmed Lead impedances, sensing, and thresholds are stable No ICD shocks Minor programming changes made today Continue remote monitoring quarterly Follow up in 1 year for device check Chronic combined systolic an d diastolic congestive heart failure ([facility]) 01/30/2020 Dyslipidemia 06/28/2018 Assessment & Plan (06/28/2018 [...] smoker 08/14/2017 Chest pain 08/10/2017 Cardiomyopathy, nonischemic ([facility]) 06/28/2017 Assessment & Plan (02/05/2023 9:09 AM CDT): NICM, chronic HFrEF with recovered LVEF 50%, NYHA class III Continue GDMT per Dr. Lopez Interstitial lung disease ([facility]) Encounters Date Type Department Care Team Description 11/09/2024 Orders Only [facility] Cardiology [facility] Medical Office Building [address] [place] [address] Marcus Bey MD PhD from Last 3 Months Surgical History Surgery Date Site/Laterality Comments CARDIAC PACEMAKER PLACEMENT 11/16/2017 - 11/15/2018 COLON SURGERY 11/16/1990 - 11/15/1991 Medical History Medical History Date Comments Sleep apnea Family History Medical History Relation Name Comments No Known Problems Father Diabetes Mother Heart disease Mother Heart failure Mother Breast cancer Sister Family history of malignant neoplasm of breast - (Added by TW Conv) Relation Name Status Comments Father Mother Sister Social History Tobacco Use Types Packs/Day Years [...] on file Legal Sex Female 6:44 PM COMMUNITY SERVICE OFFICER Gender Identity Not on file Sexual Orientation Not on file Obstetrics History Last Filed Vital Signs Vital Sign Reading [...] 07/26/2024 8:45 AM CDT Plan of Treatment Health Maintenance Due Date Last Done Comments Breast Cancer Screening-Mammogram 1954 Colon Cancer Screening-Colonoscopy 1954 Depression Screening 1954 Hepatitis C Screening 1954 Osteoporosis Screening-Bone Density Scan 1954 Pneumococcal vaccine 65+ (1 of 2 - PCV) 1960 DTaP/Tdap/Td Vaccine (1 - Tdap) 1965 Hepatitis B Screening 1972 Zoster Vaccine (1 of 2) 2004 Well Visit 65+ 2019 Covid-19 Vaccine (3 - 2024-25 season) 2024, 06/13/2021 Influenza Vaccine (#1) 2024 Fall Risk Assessment 03/15/2025 03/15/2024 Medical Devices Implanted Type Area Scutcher Tender Device Identifier Shelf Expiration Date Model / Serial / Lot [employer] Vigilant 5.37x8.18cm Mr Conditional Is 1 Df4 Is4 Connector .99cm [id number] - [id number] - [id number] Implanted:Qty: 1 on 03/15/2024 by Marcus Bey MD PhD at [facility] ICD Left: Chest Wall [employer] C[employer]. 10/19/2025 [id number] / [id number] / Procedures Procedure Name Priority Date/Time Associated Diagnosis Comments DEVICE CHECK - REMOTE Routine 11/09/2024 6:50 AM COMMUNITY SERVICE OFFICER from Last 3 Months Results * DEVICE CHECK - REMOTE (11/09/2024 6:50 AM COMMUNITY SERVICE OFFICER) Anatomical Region Laterality Modality Other 11/09/2024 6:50 AM COMMUNITY SERVICE OFFICER Narrative 12/29/2024 1:22 PM COMMUNITY SERVICE OFFICER Interpretation Summary: Battery and Leads (BL) Normal parameters noted on battery and lead(s) --- 7 years remaining (this is an estimate based on prior usage) Presenting Rhythm (IL) Atrial Sensing-Ventricular Pacing (-HEAD OF MARKETING ANALYTICS) --- rate 82 Arrhythmic events (AE) No new arrhythmic events in monitoring period Transmission Information (TI) Device Summary Report Procedure Note Marcus Bey MD PhD - 12/29/2024 Interpretation Summary: Battery and Leads (BL) Normal parameters noted on battery and lead(s) --- 7 years remaining(this is an estimate based on prior usage) Presenting Rhythm (IL) Atrial Sensing-Ventricular Pacing (-HEAD OF MARKETING ANALYTICS) --- rate 82 Arrhythmic events (AE) No new arrhythmic events in monitoring period Transmission Information (TI) Device Summary Report Marcus Bey MD PhD [facility] [place] OCEDURES Final Result from Last [address] [id number] Member Subscriber Plan / Payer ( fective 2022-Present) Name:Christine Randine Relation to Subscriber:Self Name:Abdelrahman Rand Payer ID:[id number] ([facility]) Type:MEDICARE RISK OTHER Address: [address] [facility] Care Teams Rattlesnake Farmer Relationship Specialty Start Date End Date Carmine Yost DO PCP - General 05/25/17 [place] [address] [place] [address] Consulting Physician Pulmonary Disease 08/28/23
== END 2025-01-02 12:51 | disposition home or self-care (01) ==
LOC: ANHIMG 12:55
PROVIDERS: PCP Clinical Nurse Specialist; Visit Provider Clinical Nurse Specialist
DX: Z12.31 Encounter for screening mammogram for malignant neoplasm of breast (principal)
CPT/HCPCS: 77063; 77067